=== PATIENT | male | born 1990 | race Caucasian/White ===

== ENCOUNTER 2025-01-31 07:24 | Emergency (ER) | payer BC, SELFPAY ==
--- OUTSIDE RECORDS SUMMARY | 2025-01-03 12:02 | XMS_ITS | Encounter Summary ---
Author Organization [facility] Address [address] [place] [address] Care Team Providers Care Franchise Consultant Name Role Phone Anika Sin APRN C.N.P. Primary Care Provide r Reason for Visit * Reason Comments Cough Patient presents wit h cough and congestion he has had for going on two weeks. Intermittent fevers. Encounter Details Date Type Department Care Team (Late st Contact Info) Description 01/03/2025 12:02 PM CDT - 01/03/2025 12:26 PM CDT Emergency [facility] [address] [place] [address] Guillermo French, Clarence.-C., P.A. [address] [place] [address] [phone] Pneumonia Atypical (Primary Dx) Discharge Disposition: Home or Self Care Social History Tobacco Use Types Packs/Day Years Used Date Smoking Tobacco: Never Passive Smoke Exposure: Never Smokeless Tobacco: Current Chew Tobacco Cessation:Ready to Q uit: Not Asked; Counseling Given: Not Answered Alcohol Use Standard Drinks/Week Comments Yes 0 (1 standard drink = 0.6 oz pur e alcohol) Socially [facility] Utilities Answer Date Recorded In the past 12 months has th e electric, gas, oil, or water company threatened to shut off services in your home? No 07/18/2024 Humiliation, Afraid, Rape, and Kick questionnair e Answer Date Recorded Within the last year, have y ou been afraid of your partner or ex-partner? No 08/05/2022 Within the last year, have y ou been humiliated or emotionally abused in other ways by your partner or ex-partner? No Within the last year, have y ou been kicked, hit, slapped, or otherwise physically hurt by your partner or ex-partner? No 08/05/2022 Within the last year, have y ou been raped or forced to have any kind of sexual activity by your partner or ex-partner? No 08/05/2022 Social Connection and Isolation Panel [NHANES] A nswer Date Recorded In a typical week, how many times do you talk on the phone with family, friends, or neighbors? Three times a week 08/05/2022 How often do you get togethe r with friends or relatives? Once a week 08/05/2022 How often do you attend chur ch or mormon services? Never 08/05/2022 Do you belong to any clubs o r organizations such as catholic groups, unions, fraternal or athletic groups, or school groups? No 08/05/2022 How often do you attend meet ings of the clubs or organizations you belong to? Never 08/05/2022 Are you , , di vorced, , never , or living with a partner? 08/05/2022 AUDIT-C Answer Date Recorded Q1: How often do you have a drink containing alc ohol? Monthly or less 08/05/2022 Q2: How many drinks containi ng alcohol do you have on a typical day when you are drinking? 3 or 4 08/05/2022 Q3: How often do you have si x or more drinks on one occasion? Less than monthly 08/05/2022 Overall Financial Resource Strain (CARDIA) Answe r Date Recorded How hard is it for you to pa y for the very basics like food, housing, medical care, and heating? Not hard at all 08/05/2022 PHQ-2 Answer Date Recorded PHQ-2 Score 2 07/18/2024 [facility] - Occupational Stress Questionnaire Answer Date Recorded Do you feel stress - tense, restless, nervous, or anxious, or unable to sleep at night because your mind is troubled all the time - these days? Only a little 08/05/2022 Exercise Vital Sign Answer Date Recorde d On average, how many days pe r week do you engage in moderate to strenuous exercise (like a brisk walk)? 2 days 07/18/2024 On average, how many minutes do you engage in exercise at this level? 20 min 07/18/2024 Hunger Vital Sign Answer Date Recorded Within the past 12 months, y ou worried that your food would run out before you got the money to buy more. Never true 07/18/20 24 Within the past 12 months, t he food you bought just didn't last and you didn't have money to get more. Never true 07/18/2024 PRAPARE - Transportation Answer Date Re corded In the past 12 months, has l ack of transportation kept you from medical appointments or from getting medications? No 06/30 In the past 12 months, has l ack of transportation kept you from meetings, work, or from getting things needed for daily living? No 07/18/2024 Depression Answer Date Recor ded PHQ-9 Total Score (max 27) 10 07/18 Nutrition Answer Date Recorded On average, how many serving s of fruits and vegetables do you eat per day (serving size is equal to 1 cup or approximately the size of a tennis ball)? 0-2 07/18/2024 Dental Answer Date Recorded Dental: Regular Dentist Yes 01/30/20 Employment Answer Date Recorded Employment status Employed and actively working without restrictions 07/18/2024 Housing Stability Answer Date Recorded What is your living situation today? I have a [facility] place to live 07/18/2024 Education Answer Date Recorded What is the highest level of school you have completed or the highest degree you have received? Associate degree: occupational, technical, or vocational program 08/12/2021 Sex and Gender Information Value Date Recorded Sex Assigned at Male 08/12/2021 6:02 PM FACULTY MEMBER Legal Sex Male 5:29 PM FACULTY MEMBER Gender Identity Male 08/12/2021 6:02 PM FACULTY MEMBER Sexual Orientation Straight 08/12/2021 6: 02 PM FACULTY MEMBER documented as of this encounter Last Filed Vital Signs Vital Sign Reading Time Taken Comments Blood Pressure 152/105 01/03/2025 11:59 AM CDT Patient states he does have higher BP, usually 150s/90s Pulse 90 01/03/2025 11:59 AM CDT Temperature 37.5 C (99.5 F) 01/03/2025 11:59 AM CDT Respiratory Rate 16 01/03/2025 11:5 9 AM CDT Oxygen Saturation 98% 01/03/2025 11: 59 AM CDT Inhaled Oxygen Concentration - - Weight 177 kg (390 lb 6.4 oz) 01/03/2025 12:02 PM CDT Height 195.6 cm (6' 5) 01/03/2025 12:0 2 PM CDT Body Mass Index 46.29 01/03/2025 12:02 PM CDT documented in this encounter Discharge Instructions * Attachments The following attachments cannot be sent through Care Everywhere. * Community-Acquired Pneumonia Adult [id number] ([place] Island[place]) documented in this encounter Medications at Time of Discharge albuterol 90 mcg/actuation inhalerIndications:P neumonia Atypical Inhale 2 puffs every 6 (six) hours as needed for wheezing. 8 g 1 01/03/2025 lamoTRIgine (LaMICtaL) 200 mg tablet Take 200 mg by mouth daily. 02/02/2024 methylPREDNISolone (MedroL DosePak) 4 mg tabletIndications:Pn eumonia Atypical Follow package directions. 21 tablet 01/03/2025 omeprazole (PriLOSEC) [address] capsuleIndications:G astroesophageal Reflux Disease,Stricture Esophagus Take 1 capsule (40 mg total) by mouth daily before morning meal. 90 capsule 3 07/18/2024 rizatriptan PIT LABORER (Maxalt-PIT LABORER) 10 mg disintegrating tabletIndications:Mi graine Headache DISSOLVE 1 TABLET BY MOUTH NEEDED FOR MIGRAINE. 18 tablet 1 07/18/2024 triamcinolone (Kenalog) 0.1 % cream APPLY A THIN LAYER TO THE AFFECTED AREA ON THE LEG TWO TIMES DAILY FOR UP TO 2 WEEKS AT A TIME, THEN TAKE A 2 WEEK BREAK. RESUME NEEDED. 10/25/2024 venlafaxine XR (EFFEXOR-XR) 150 mg 24 hr capsuleIndications:A nxiety Generalized Disorder,Depression Major One Episode Moderate (HCC) Take 1 capsule (150 mg total) by mouth daily. 90 capsule 3 03/05/2022 azithromycin (Zithromax) 250 mg tabletIndications:Pn eumonia Atypical Take 2 tablets (500 mg total) by mouth daily for 1 day, THEN 1 tablet (250 mg total) daily for 4 days. 6 tablet 01/03/2025 5 documented as of this encounter Progress Notes * Guillermo French P.A.-Rajani., P.A. - 01/03/2025 12:26 PM CDT DATE OF VISIT: 01/03/2025 SUBJECTIVE CHIEF COMPLAINT / REASON FOR VISIT Brian Huddleston is a 34 y.o. male who presents for evaluation of Cough (Patient presents with cough and congestion he has had for going on two weeks. Intermittent fevers. ). The patient verbally consented to an audio recording of their visit to assist with the completion of documentation. History of Present Illness Brian Huddleston is a 34 year old male who presents with congestion, cough, and sore throat. He has been experiencing congestion, cough, and sore throat for the past one and a half to two weeks. There is a persistent feeling of phlegm in his throat that does not improve despite efforts to alleviate it. The cough is persistent and not improving. He has no fever, chills, or body aches, but he has a headache currently and sporadically over the past couple of weeks, which he attributes to severe coughing fits. He experiences a sore throat but no significant sinus congestion or facial pressure. He reports blowing thick green mucus from his nose. He has a history of asthma, which was more symptomatic during his childhood. He has not experiencedan asthma attack since middle school and is not currently using any asthma medications, including an albuterol inhaler. OBJECTIVE VITAL SIGNS BP (!) 152/105 Comment: Patient states he does have higher BP, usually 150s/90s Pulse 90 Temp 37.5 ??C (Temporal) Resp 16 Ht 195.6 cm Wt (!) 177 kg SpO2 98% BMI 46.29 kg/m?? Physical Exam Vitals and nursing note reviewed. Constitutional General: He is not in acute distress. Appearance: Normal appearance. He is ill-appearing. He is not toxic-appearing. HENT Head: Normocephalic and atraumatic. Right Ear: Tympanic membrane, ear canal and external ear normal. Left Ear: Tympanic membrane, ear canal and external ear normal. Nose: Nose normal. No congestion or rhinorrhea. Mouth/Throat: Mouth: Mucous membranes are moist. Pharynx: Oropharynx is clear. No oropharyngeal exudate or posterior oropharyngeal erythema. Cardiovascular Rate and Rhythm: Normal rate and regular rhythm. Pulses: Normal pulses. Heart sounds: Normal heart sounds. Pulmonary Effort: Pulmonary effort is normal. No respiratory distress. Breath sounds: Wheezing present. No rhonchi or rales. Musculoskeletal Cervical back: Normal range of motion and neck supple. No rigidity or tenderness. Lymphadenopathy Cervical: No cervical adenopathy. Skin General: Skin is warm and dry. Capillary Refill: Capillary refill takes less than 2 seconds. Neurological General: No focal deficit present. Mental Status: He is alert and oriented to person, place, and time. Psychiatric Mood and Affect: Mood normal. Behavior: Behavior normal. ASSESSMENT/ PLAN Pneumonia Atypical Symptoms consistent with atypical pneumonia, including congestion, cough, sore throat, and headacheover the past 1-2 weeks. No fever, chills, or body aches reported. Examination reveals tight and wheezy lungs without specific consolidation. Diagnosis of walking pneumonia made based on history and clinical findings. Decision made to forgo chest x-ray as it would not significantly alter treatment plan. Treatment with antibiotics and oral steroids deemed appropriate. - Prescribe oral antibiotics for atypical pneumonia. - Prescribe oral steroids to reduce inflammation. Orders: azithromycin (Zithromax) 250 mg tablet; Take 2 tablets (500 mg total) by mouth daily for 1 day, THEN 1 tablet (250 mg total) daily for 4 days. methylPREDNISolone (MedroL DosePak) 4 mg tablet; Follow package directions. albuterol 90 mcg/actuation inhaler; Inhale 2 puffs every 6 (six) hours as needed for wheezing. Patient/caregiver was instructed to contact the clinic if symptoms fail to improve as discussed, worsen, or change. Patient/caregiver was in agreement with the care plan and all questions were answered. Health maintenance was discussed, and the patient/caregiver was encouraged to complete these if not already completed. Patient left in no acute distress. Guillermo French P.A.-C., P.A. Guillermo French P.A.-C., P.A. 01/03/25 [id number] documented in this encounter Plan of Treatment Upcoming Encounters Date Type Department Care Team (Late st Contact Info) Description 06/06/2025 9:45 AM CDT Office Visit Department of Sleep Medicine in [place], [place] [address] [place] [phone] Cheng Pritchett M.D. [address] [place] [phone] Discharge Disposition: Home or Self Care documented as of this encounter Visit Diagnoses Diagnosis Pneumonia Atypical- Primary documented in this encounter Additional Health Concerns Assessment Noted Time PHQ-9 Depression Total Score: 10 07/18/ 024 5:15 AM FACULTY MEMBER documented as of this encounter Care Teams Franchise Consultant Relationship Specialty Start Date End Date Anika Sin APRN, C.N.P. [address] [place] [phone] PCP - General Family Medicine 08/20/20 documented as of this encounter
--- OUTSIDE RECORDS SUMMARY | 2025-01-17 09:00 | XMS_ITS | Encounter Summary ---
Author Organization [facility] Address [address] [place] [address] Care Team Providers Care Clinic Business Manager Name Role Phone Anika Sin APRN, C.N.P. Primary Care Provide r Reason for Referral * Outpatient (Routine) - Authorized Specialty Diagnoses / Procedures Referred By Tessa stubbs Referred To Contact Sleep Medicine Cheng Pritchett M.D. [address] [place] [address] Phone: tel: fax: [facility] Region Referral ID Status Reason Start Date Expiration Date V isits Requested Visits Authorized [id number] Authorized 01/17/2025 07/19/2026 1 1 Reason for Visit * Reason Comments Sleep Apnea Establish care-uses cpap * Outpatient (Routine) - Closed Specialty Diagnoses / Procedures Referred By Tessa stubbs Referred To Contact Sleep Medicine Diagnoses Apnea Sleep Obstructive Anika Sin APRN, C.N.P. [address] [place] [address] Phone: tel: fax: [facility] Region Referral ID Status Reason Start Date Expiration Date V isits Requested Visits Authorized [id number] Closed Specialty Services Required 07/18/2024 01/17/2026 1 1 Encounter Details Date Type Department Care Team (Latest Contact Info) Description 01/17/2025 9:00 AM CDT Comprehensive Visit Department of Sleep Medicine in [place], [place] [address] [place] [phone] Cheng Pritchett M.D. [address] [place] [address] Obstructive Sleep Apnea Adult (Primary Dx); Apnea Sleep Obstructive; Inadequate Sleep Hygiene; Insufficient Sleep Syndrome; Fatigue Discharge Disposition: Home or Self Care Social History Tobacco Use Types Packs/Day Years Used Date Smoking Tobacco: Never Passive Smoke Exposure: Never Smokeless Tobacco: Current Chew Alcohol Use Standard Drinks/Week Comments Yes 1 (1 standard drink = 0.6 oz pur e alcohol) Socially [facility] [employer] Answer Date Recorded In the past 12 months has e [employer], gas, oil, or water [employer] threatened to shut off services in your [...] often do you attend chur ch or yarsani services? Never 08/05/2022 Do you belong to any clubs o r organizations such as voodoo groups, unions, fraternal or athletic groups, or [...] Answer Date Recorded PHQ-2 Score 2 07/18/2024 [facility] - Occupational Stress Questionnaire Answer Date Recorded [...] your living situation today? I have a [facility] place to live 07/18/2024 Education Answer Date Recorded What is the highest level of school you have completed or the highest degree you have received? Associate degree: occupational, technical, or vocational program 08/12/2021 Sex and Gender Information Value Date Recorded Sex Assigned at Male 08/12/2021 6:02 PM BEER MAKER Legal Sex Male 5:29 PM BEER MAKER Gender Identity Male 08/12/2021 6:02 PM BEER MAKER Sexual Orientation Straight 08/12/2021 6: 02 PM BEER MAKER documented as of this encounter Last Filed Vital Signs Vital Sign Reading Time Taken Comments Blood Pressure 135/84 01/17/2025 8:48 AM CDT Pulse 77 01/17/2025 8:44 AM CDT Temperature 36.4 C (97.6 F) 01/17/2025 8:44 AM CDT Respiratory Rate - - Oxygen Saturation 97% 01/17/2025 8:44 AM CDT Inhaled Oxygen Concentration - - Weight 180 kg (397 lb 14.4 oz) 01/17/2025 8:44 A M CDT Height 195 cm (6' 4.77) 01/17/2025 8:44 AM CDT Body Mass Index 47.46 01/17/2025 8:44 AM CDT documented in this encounter Patient Instructions * Patient Instructions* Cheng Pritchett M.D. - 01/17/2025 9:00 AM CDT 1. Please obtain a new CPAP machine from the [facility] medical equipment store. They should callyou in the coming business days, though please reach out to them if you do not hear from them within 1 week. Please know that due to CPAP supply shortage, obtaining a new device may take weeks to over a month depending on availability. 2. Please have a goal to use your CPAP machine every night for as long as you sleep. You may first use the device while awake, prior to sleep, until you become comfortable with the device. 3. Please schedule an appointment at the help desk specialist to follow up in the sleep offices with Dr. Mancini approximately 6-7 weeks after you obtain your new CPAP machine. Please know that due to providershortage, follow up appointment may be scheduled out longer than the 6-7 week goal. [facility], and we anticipate easier access to Dr. Pritchett in the months to come. 4. Should you have any difficulties all starting CPAP therapy, please contact your durable medical equipment provider or our office is so that we may help troubleshoot any problems you may be experiencing. 5. Do not drive while drowsy. 6. For your other sleep challenges, please consider the following: -Please complete an overnight oxygen test after getting your new CPAP device. help desk rep will help schedule this appointment -Please have a caffeine cutoff time of about 3:00 pm -Please consider taking Lamictal in the morning -Please consider sleep extension to at least 7 hours of sleep per night -Please try to limit light and cell phone stimulus before bed documented in this encounter Consult Notes * Cheng Pritchett M.D. - 01/17/2025 9:00 AM CDT SUBJECTIVE Anika Sin, FRONT END LOADER OPERATOR, C.N.P. [address] [place] [address] REASON FOR CONSULT Mr. Huddleston is seen in consultation for possible obstructive sleep apnea. History was obtained from the patient and medical records. HISTORY OF PRESENT ILLNESS Mr. Huddleston is a 34 y.o. male who comes in with sleep questionnaire indicating a sleep history positive for ???I am sleepy during the daytime?? . The patient was previously evaluated by sleep medicinein [address] [facility] location at [facility] [place], [place]. The patientunderwent a polysomnogram on 11/14/2018. Results demonstrated an AHI of 39 events per hour. Weight at the time of the polysomnogram was 323 lb. In follow up, the patient was started on CPAP therapy. Today, the patient states that he continues to use the CPAP every night. The patient would like to establish care in the [facility] as he does not make it up to [place], [place] much any longer. The patient states that he does not have sleep complaints, though is somewhat tired during the daytime. The patient state that this primary goal of care is to make sure things are under control and that he keeps the CPAP where it should be. Regarding his sleep schedule, the patient physically gets into bed at 8:00 - 8:30 pm on weekdays and weekends after putting his son down to bed. The patient states that he will then use his cell phone for about 2-4 hours. He states that he will drift off to sleep during this time or fall asleep shortly after putting the cell phone down. Bedroom environment is quiet, dark, and relatively cool in temperature. During the course of the night, the patient will awaken about 2-3x due attending to children or other unknown reasons. The patient estimates returning to sleep in about 10 minutes, typically. The patient does not believe he is snoring with the CPAP device in place. The patient states that he uses a nasal pillow mask interface. He believes he achieves a good seal. The patient denies symptoms consistent with restless leg syndrome. The patient denies regular nightmares and denies dream enactment behavior. TH patient denies sleep walking and denies sleep eating. The patient awakens for the day at about 4:30 am on weekdays, with range of 3:30 am - 6:00 am. Schedule will be approximately the same on weekends. The patient states that he does not feel rested upon awakening. The patient states that he does have a dry mouth upon awakening at times. The patient states that he does have a headache upon awakening, about 1 day/week. The patient does take naps 2 days/week for about 2 hours per nap. The patient states that he does have some degree of drowsiness while driving. The patient states that his natural sleep onset time would be about 10:00 pm. 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 The patient has not worked overnight shifts in the last 5 years. The patient does use chew tobacco, about 4-5 pouches per week. The patient ETOH is about 0-1 drinks/week. The patient denies recreational drugs. Caffeine use is with soda, 20-40 oz per day or 1 liter plus 24 oz per day. The patient will imbibe caffeine into the evening. The patient states that he estevez snot use sleep aids. The patient states that his weight has been up about 70 lbs since his sleep study. The patient states that his mood has been good. Thepatient states that he does some irritability. He does take Venlafaxine in the morning. He does take Lamictal at night. Deary Score is 9/24. PAST MEDICAL, SOCIAL and FAMILY HISTORIES The following portions of the patient's history were reviewed and updated as appropriate: allergies, current medications, family history, medical history, social history, surgical history, and problem list. Social History Tobacco Use Smoking status: Never Passive exposure: Never Smokeless tobacco: Current Types: Chew Family History with mother and father who have HELEN, on CPAP REVIEW OF SYSTEMS As above in the HPI. OBJECTIVE PHYSICAL EXAM Vitals: 01/17/25 0844 01/17/25 0848 BP: (!) 168/79 135/84 BP Location: Right arm;Lower Right leg;Lower Patient Position: Sitting Sitting Cuff Size: Large Large Pulse: 77 Temp: 36.4 ??C TempSrc: Temporal SpO2: 97% Weight: (!) 180 kg Height: 195 cm Physical Exam Deferred Date of download: 10/19/2024 through 01/16/2025 Patient was on: CPAP 11 cm H2O Total days included in download: 90 Percent days with device use: 100% Percent days with > 4 hrs use: 94% Average AHI as determined by device was: 1.5 Average usage on days used: 6 hours and 22 minutes ASSESSMENT / PLAN 1. Severe obstructive sleep apnea, on CPAP. The patient and I have reviewed his previous sleep history, ongoing CPAP use, and goals of care during today's appointment. The patient would like to establish care at the [facility]. He would like to receive CPAP supplies, though he is eligible for a new device as well. For the patient, new CPAP prescription has been generated with settings of 11 cm H2O. He will use the [facility] in [place], [place] to obtain his new device. After obtaining new device, we will follow-up in approximately 6 7 weeks to review compliance and efficacy. Shouldhe have any difficulty in the interim, he will contact the Sleep Medicine offices or his DME store so that we may help troubleshoot any problems he is experiencing. 2. Fatigue/inadequate sleep hygiene/insufficient sleep. The patient and I have also discussed fatigue. We will proceed with an overnight pulse oximetry as an additional means of assessment after he obtains his new CPAP device. He has gained approximately 70 lb since the time of his sleep test. Moreover, independent of sleep disorder breathing, I have encouraged sleep extension for the patient as he is obtaining less than 7 hours of sleep per night regularly. I have encouraged a caffeine cut offtime of no later than 3:00 p.m.. He may also consider taking Lamictal in the morning rather than prior to sleep. I have recommended that he also limit light cell phone stimulus prior to bed. Cheng Pritchett M.D. documented in this encounter Plan of Treatment Upcoming Encounters Date Type Department Care Team (Late st Contact Info) Description 06/06/2025 9:45 AM CDT Office Visit Department of Sleep Medicine in [place], [place] [address] [place] [address] Cheng Pritchett M.D. [address] [place] [address] Discharge Disposition: Home or Self Care Scheduled Orders Name Type Priority Associated Diagnoses Orde r Schedule Home Overnight Oximetry PFT Routine Obstructive Sleep Apnea Adult Expected: 01/17/2025, Expires: 04/19/2026 Scheduled Referrals Name Type Priority Associated Diagnoses Orde r Schedule Sleep Medicine office visit (clinic) Outpatient Referral Routine Expected: 01/17/2025, Expires: 04/19/2026 documented as of this encounter Visit Diagnoses Diagnosis Obstructive Sleep Apnea Adult- Primary Apnea Sleep Obstructive Inadequate Sleep Hygiene Insufficient Sleep Syndrome Fatigue documented in this encounter Additional Health Concerns Assessment Noted Time PHQ-9 Depression Total Score: 10 024 5:15 AM BEER MAKER documented as of this encounter Care Teams Clinic Business Manager Relationship Specialty Start Date End Date Anika Sin APRN, C.N.P. [address] [place] [address] PCP - General Family Medicine 08/20/20 documented as of this encounter
--- OUTSIDE RECORDS SUMMARY | 2025-01-31 07:27 | XMS_ITS | Encounter Summary ---
Author Organization [facility] Address [address] [place] [address] Care Team Providers Care Pickers Material Handlers Name Role Phone Anika Sin APRN, C.N.P. Primary Care Provide r Encounter Details Date Type Department Care Team (Late st Contact Info) Description 01/17/2025 CPAP Download Remote Patient Monitoring [facility] [address] [place] [address] [facility], ProviderMD Social History Tobacco Use Types Packs/Day Years Used Date Smoking Tobacco: Never Passive Smoke Exposure: Never Smokeless Tobacco: Current Chew Alcohol Use Standard Drinks/Week Comments Yes 1 (1 standard drink = 0.6 oz pur e alcohol) Socially [facility] Utilities Answer Date Recorded In the past 12 months has e [employer], gas, oil, or water [employer] threatened to shut off services in your [...] often do you attend chur ch or buddhist services? Never 08/05/2022 Do you belong to any clubs o r organizations such as hoahaoism groups, unions, fraternal or athletic groups, or [...] Answer Date Recorded PHQ-2 Score 2 07/18/2024 [facility] - Occupational Stress Questionnaire Answer Date Recorded [...] your living situation today? I have a [facility] place to live 07/18/2024 Education Answer Date Recorded What is the highest level of school you have completed or the highest degree you have received? Associate degree: occupational, technical, or vocational program 08/12/2021 Sex and Gender Information Value Date Recorded Sex Assigned at Male 08/12/2021 6:02 PM DIRECTOR OF CAMPUS RECREATION Legal Sex Male 5:29 PM DIRECTOR OF CAMPUS RECREATION Gender Identity Male 08/12/2021 6:02 PM DIRECTOR OF CAMPUS RECREATION Sexual Orientation Straight 08/12/2021 6: 02 PM DIRECTOR OF CAMPUS RECREATION documented as of this encounter Plan of Treatment Upcoming Encounters Date Type Department Care Team (Late st Contact Info) Description 06/06/2025 9:45 AM CDT Office Visit Department of Sleep Medicine in [place], [place] [address] [place] [phone] Cheng Pritchett M.D. [address] [place] [phone] Discharge Disposition: Home or Self Care documented as of this encounter Visit Diagnoses Not on filedocumented in this encounter Additional Health Concerns Assessment Noted Time PHQ-9 Depression Total Score: 10 024 5:15 AM DIRECTOR OF CAMPUS RECREATION documented as of this encounter Care Teams Pickers Material Handlers Relationship Specialty Start Date End Date Anika Sin APRN CRupaliN.P. [address] [place] [phone] PCP - General Family Medicine 08/20/20 documented as of this encounter
--- OUTSIDE RECORDS SUMMARY | 2025-01-31 07:27 | XMS_ITS | Clinical Summary ---
Author Organization [facility] Address [address] [place] [address] Care Team Providers Care Ear Flap Binder Name Role Phone Anika Sin APRN, C.N.P. Primary Care Provide r Source Comments Patient records contain information from all sites at [facility]. For routine questions regarding patient records, call [phone] during business hours, M-F 8:00 AM - 5:00 PM Central Time. Record requests for emergency care only can be directed to [phone] at any time.[facility] Allergies Active Allergy Reactions Criticality Noted Date Comments Penicillins Hives (Reselect Reaction) 4 hives Medications * This document contains information received from the source organization and may not represent a complete record from that organization. venlafaxine XR (EFFEXOR-XR) 150 mg 24 hr capsuleIndications :Anxiety Generalized Disorder,Depressio n Major One Episode Moderate (HCC) Take 1 capsule (150 mg total) by mouth daily. 90 capsule 3 2 Active lamoTRIgine (LaMICtaL) 200 mg tablet Take 200 mg by mouth daily. 4 Active omeprazole (PriLOSEC) [address] capsuleIndications :Gastroesophageal Reflux Disease,Stricture Esophagus Take 1 capsule (40 mg total) by mouth daily before morning meal. 90 capsule 3 4 Active rizatriptan [employer] (Maxalt-[employer]IN [employer]WE[employer] OPERATOR) 10 mg disintegrating tabletIndications: Migraine Headache DISSOLVE 1 TABLET BY MOUTH NEEDED FOR MIGRAINE. 18 tablet 1 4 Active triamcinolone (Kenalog) 0.1 % cream APPLY A THIN LAYER TO THE AFFECTED AREA ON THE LEG TWO TIMES DAILY FOR UP TO 2 WEEKS AT A TIME, THEN TAKE A 2 WEEK BREAK. RESUME NEEDED. 5 Active methylPREDNISolone (MedroL DosePak) 4 mg tabletIndications: Pneumonia Atypical Follow package directions. 21 tablet 5 Active albuterol 90 mcg/actuation inhalerIndications :Pneumonia Atypical Inhale 2 puffs every 6 (six) hours as needed for wheezing. 8 g 1 5 Active azithromycin (Zithromax) 250 mg tabletIndications: Pneumonia Atypical Take 2 tablets (500 mg total) by mouth daily for 1 day, THEN 1 tablet (250 mg total) daily for 4 days. 6 tablet 5 01/18/20 Active Problems Problem Noted Date Diagnosed Date Depression Major One Episode Moderate 01/29/2022 Body Mass Index 45.0 To 49.9 Adult 05/13/2021 Anxiety Generalized Disorder 07/19/2020 Gastroesophageal Reflux Disease 07/19/2020 Stricture Esophagus 07/19/2020 Migraine Headache 07/19/2020 Apnea Sleep Obstructive 11/21/2018 Overview (07/19/2020): Severe HELEN Setting: CPAP 11 Supplied by: [facility] PSG done: 11/14/18 AHI 39 RDI 43 Lowest O2 Sat: 80% Isacc/Khushier 11/21/18 new Encounters * This document contains information received from the source organization and may not represent a complete record from that organization. Date Type Department Care Team Description 01/17/2025 9:00 AM CDT Comprehensive Visit Department of Sleep Medicine in [address] [phone] Cheng Pritchett M.D. Obstructive Sleep Apnea Adult (Primary Dx); Apnea Sleep Obstructive; Inadequate Sleep Hygiene; Insufficient Sleep Syndrome; Fatigue Discharge Disposition: Home or Self Care 01/17/2025 CPAP Download Remote Patient Monitoring [facility] [address] [place] [address] [facility], Provider, 01/03/2025 12:02 PM CDT - 01/03/2025 12:26 PM CDT Emergency [facility] [address] [place] [phone] Guillermo French P.A.-C., P.A. Pneumonia Atypical (Primary Dx) Discharge Disposition: Home or Self Care from Last 3 Months Immunizations Immunization Administration Dates Next Due Influenza, Seasonal, Injectable 09/03/2013 Influenza, Unspecified 08/13/2021(Deferred: Amelia ent Refused) SARS-COV-2 (COVID-19) - PFIZ ER (Discontinued)(12 years or older) 08/13/2021(Deferred: Patient decision) Tdap 05/11/2016 influenza vaccine quad (FLUZONE/FLUARIX) (6 months and older)(PF) 06/28/2014 Family History Medical History Relation Name Comments No Known Problems Daughter 1 No Known Problems Daughter 2 Atrial fibrillation Father Anxiety depression Mother 1 Blood clot Mother 1 Diabetes Mother 1 No Known Problems Sister 1 No Known Problems Sister 2 Relation Name Status Comments Daughter 1 Alive Daughter 2 Alive Father Alive Mother 1 Mother 2 Jazmín neri Alive Sister 1 Alive Sister 2 Alive Social History Tobacco Use Types Packs/Day Years Used Date Smoking Tobacco: Never Passive Smoke Exposure: Never Smokeless Tobacco: Current Chew Tobacco Cessation:Ready to Q uit: Not Asked; Counseling Given: Not Answered Alcohol Use Standard Drinks/Week Comments Yes 1 (1 standard drink = 0.6 oz pur e alcohol) Socially [facility] [employer] Answer Date Recorded In the past 12 months has e [employer], gas, oil, or water [employer] threatened to shut off services in your [...] often do you attend chur ch or adventism services? Never 08/05/2022 Do you belong to any clubs o r organizations such as muslim groups, unions, fraternal or athletic groups, or [...] Answer Date Recorded PHQ-2 Score 2 07/18/2024 [facility] - Occupational [...] your living situation today? I have a [facility] place to live 07/18/2024 Education Answer Date Recorded What is the highest level of school you have completed or the highest degree you have received? Associate degree: occupational, technical, or vocational program 08/12/2021 Sex and Gender Information Value Date Recorded Sex Assigned at Male 08/12/2021 6:02 PM [employer] Legal Sex Male 5:29 PM [employer]PER[employer]OR [employer] Gender Identity Male 08/12/2021 6:02 PM [employer]VISOR [employer] Sexual Orientation Straight 08/12/2021 6: 02 PM SUPERVISOR SANDB[employer] Last Filed Vital Signs Vital Sign Reading Time Taken Comments Blood Pressure 135/84 01/17/2025 8:48 AM CDT Pulse 77 01/17/2025 8:44 AM CDT Temperature 36.4 C (97.6 F) 01/17/2025 8:44 AM CDT Respiratory Rate 16 01/03/2025 11:59 AM CDT Oxygen Saturation 97% 01/17/2025 8:44 AM CDT Inhaled Oxygen Concentration - - Weight 180 kg (397 lb 14.4 oz) 01/17/2025 8:44 A M CDT Height 195 cm (6' 4.77) 01/17/2025 8:44 AM CDT Body Mass Index 47.46 01/17/2025 8:44 AM CDT Plan of Treatment Upcoming Encounters Date Type Department Care Team (Late Contact Info) Description 06/06/2025 9:45 AM CDT Office Visit Department of Sleep Medicine in [place], [place] [address] [place] [phone] Cheng Pritchett M.D. [address] [place] [phone] Discharge Disposition: Home or Self Care Health Maintenance Due Date Last Done Comments HIV Screening 1989 Hepatitis C Screening 1989 Hepatitis B Vaccines (1 of 3 - 19+ 3-dose series) 2008 COVID-19 Vaccine (2023-2 5 season) 2024 Influenza Vaccine (#1) 2024 4, 09/03/2013 Depression Monitoring (PHQ-9 for quality tracking) 08/30/2024 Depression Monitoring (PHQ-9) 11/15/2024 07/18/2024 Tobacco Cessation counseling 07/18/2025 07/18/2024 DTaP,Tdap,and Td Vaccines (2 - Td or Tdap) 05/11/2026 05/11/2016 Lipid (Cholesterol) Screening 07/18/2029 07/18/2024 HPV Vaccines Aged Out No longer eligi ble based on patient's age to complete this topic IPV Vaccines Aged Out No longer eligi ble based on patient's age to complete this topic Pneumococcal vaccine (0-49 years) Aged Out No longer eligible b ased on patient's age to complete this topic Procedures Procedure Name Priority Date/Time Associated Diagnosis Comments LIPID PANEL, S Routine 07/18/2024 4:12 PM SUPERVISOR S[employer] Screening Lipid from Last 3 Months or Most Recently Relevant to Health Maintenance Results * (ABNORMAL) Lipid Panel (07/18/2024 4:12 PM SUPERVISOR SANDBLASTER) Triglycerides 127 mg/dL 07/18/2024 6:54 PM SUPERVISOR SANDBLASTER NPRG Comment: ----REFERENCE VALUE---- Normal: <150 mg/dL Borderline High: 150-199 mg/dL High: 200-499 mg/dL Very High: > or =500 mg/dL Cholesterol, Total 129 mg/dL 2023 6:54 PM SUPERVISOR SANDB[employer] NPRG Comment: ----REFERENCE VALUE---- Desirable: < 200 mg/dL Borderline High: 200 - 239 mg/dL High: > or = 240 mg/dL Cholesterol, LDL, Calculated 69 mg/dL 07/18/2024 6:54 PM SUPERVISOR SANDBLASTER NPRG Comment: ----REFERENCE VALUE---- Desirable: <100 mg/dL Above Desirable: 100-129 mg/dL Borderline High: 130-159 mg/dL High: 160-189 mg/dL Very High: >=190 mg/dL ----ADDITIONAL INFORMATION---- LDL cholesterol calculated using the Atkins/NIH equation. Cholesterol, HDL 37(L) >=40 mg/dL 07/18/20 6:54 PM SUPERVISOR SANDB[employer]ER NPRG Cholesterol, Non-HDL, Calculated 92 mg/dL 07/18/2024 6:54 PM SUPERVISOR SANDBLASTER NPRG Comment: ----REFERENCE VALUE---- Desirable: <130 mg/dL Above Desirable: 130-159 mg/dL Borderline High: 160-189 mg/dL High: 190-219 mg/dL Very High: > or =220 mg/dL Fasting (8 HR or more) No 07/18/2024 4:12 PM SUPERVISOR SANDB[employer] NPRG Blood (Blood, Venous) 07/18/2024 4:12 PM SUPERVISOR SANDBLASTER 07/18/2024 6:27 PM SUPERVISOR SANDB[employer]ER us Anika Sin APRN, C.N.P. LAB BLOOD ADD-ON Kimberli l Result [facility] [address] [place] [address], [facility] NPRG [facility] [address] [place] [address] from Last 3 Months or Most Recently Relevant to Health Maintenance Insurance [facility] Care Teams Ear Flap Binder Relationship Specialty Start Date End Date Anika Sin APRN, C.N.P. [address] [place] [phone] PCP - General Family Medicine 08/20/20
--- OUTSIDE RECORDS SUMMARY | 2025-01-31 07:27 | XMS_ITS | Data Portability ---
Author Organization [place] - [facility], autoContract - [facility] Address [address] [place] [address] Assessment Encounter Date Assessment Date Assessment LastModified by Organization Details LastModified Time 01/01/2025 01/01/2025 ASSESSMENT: Patient is a good candidate for conservative care and the prognosis is for a favorable outcome that achieves the patients' goals. We discussed etiology, activity modifications, home care, and other treatment options. Initially, it is recommended that the patient receive in-office treatment 1 times per week for 8 weeks at which time a re-evaluation will be performed to determine an appropriate change in plan. Initially, treatment will focus on joint manipulation to restore range of motion and reduce pain. We will slowly progress to therapeutic exercises and activities to improve function, strength, and stability may also be used as warranted. If the patient is not responding as expected, more invasive procedures will be discussed along with a referral. All considerations above were discussed with the patient and questions answered to satisfaction. If the patient should have any additional questions, or should the condition evolve or worsen, the patient should not hesitate to contact our office. Not available 01/02/2025 11:41:53 01/24/2025 01/24/2025 ASSESSMENT: Patient is a good candidate for conservative care and the prognosis is for a favorable outcome that achieves the patients' goals. We discussed etiology, activity modifications, home care, and other treatment options. Initially, it is recommended that the patient receive in-office treatment 1 times per week for 8 weeks at which time a re-evaluation will be performed to determine an appropriate change in plan. Initially, treatment will focus on joint manipulation to restore range of motion and reduce pain. We will slowly progress to therapeutic exercises and activities to improve function, strength, and stability may also be used as warranted. If the patient is not responding as expected, more invasive procedures will be discussed along with a referral. All considerations above were discussed with the patient and questions answered to satisfaction. If the patient should have any additional questions, or should the condition evolve or worsen, the patient should not hesitate to contact our office. Not available 01/24/2025 19:09:40 Plan of Treatment Reminders Order Date Submit Date Provider Last Modified By Organization Details Last Modified Time Details Appointments DC Treatment 2024 05:15P M Casper Lopez MS Not available Not available Not available Lab None recorded. Referral None recorded. Procedures None recorded. Surgeries None recorded. Imaging None recorded. Medication Orders None recorded. Patient TargetsNo targets recorded. Patient InstructionsNo instructions recorded. Reason for Referral None Reported. Problems Name Problem SNOMED Code Status Onset Date Resolution Date Notes Provider Name and Address Organization Details Recorded Time Somatic dysfunction of pelvic region 209551461 Active 2024 Shayne Crews, [place] [address], [facility] [place], [place], [address], [facility] 5 19:34:36 Neck pain 86553382 Active 2023 Casper LopezWALKER, [place] [address], [place], [address], [facility] 5 12:19:15 Cervical segmental dysfunction 031441567 Active 2023 [place], [place] [address], [place], [address], [facility] 4 15:13:31 Thoracic segmental dysfunction 350707716 Active 2023 [place], [place] [address], [place], [address], [facility] 5 12:19:16 Lumbar segmental dysfunction 064575001 Active 2023 Casper LopezWALKER, DC [address], [place], [address], [facility] 4 15:13:31 Lesion of lumbar spine 085944024 Active 2023 Casper Lopez DC [address], [place], [address], [facility] 4 15:13:33 Low back pain 414151561 Active 2023 Arjun VareladuaneKAYLEIGH [address], [place], [address], [facility] 4 19:05:45 Somatic dysfunction of sacral spine 363937547 Active 2023 Casper Lopez DC [address], [place], [address], [facility] 12:19:19 Problem Notes None recorded. Procedures Surgical History Date Name Laterality Status Provider Name and Address Organization Details Recorded Time 5 67727: Spinal manipulation , 3 to 4 regions completed Casper LopezKAYLEIGH [address], [place], [address], [facility] 01/24/2025 19:09:40 5 11773: Spinal manipulation , 3 to 4 regions completed Casper Lopez KAYLEIGH [address], [place], [address], [facility] 01/02/2025 12:19:09 5 09251: Spinal manipulation , 3 to 4 regions completed Casper BookergabrieldashaKAYLEIGH [address], [place], [address], [facility] 01/02/2025 11:42:16 5 89175: Spinal manipulation , 3 to 4 regions completed Shayne Crews DC [address], [place], [address], [facility] 11/25/2024 19:34:19 5 06281: Spinal manipulation , 3 to 4 regions completed Shayne Crews DC [address], [place], [address], [facility] 11/09/2024 10:24:28 5 67922: Spinal manipulation , 3 to 4 regions completed Casper Lopez MS [address], [place], [address], [facility] 10/27/2024 19:27:34 5 58528: Spinal manipulation , 3 to 4 regions completed Casper Hansnorm Lopez MS [address], [place], [address], [facility] 10/23/2024 19:49:38 5 08521: Spinal manipulation , 3 to 4 regions completed Arjun Salamanca DC [address], [place], [address], [facility] 10/20/2024 18:50:29 5 24044: Spinal manipulation , 3 to 4 regions completed Shayne Crews [address], [place], [address], [facility] 10/19/2024 17:06:10 4 41386: Spinal manipulation , 3 to 4 regions completed Arjun Salamanca DC [address] [place] [address], [place], [address], [facility] 08/21/2024 19:05:25 4 28309: Spinal manipulation , 3 to 4 regions completed Casper Hansnorm Lopez [address], [place], [address], [facility] 08/17/2024 15:14:28 Imaging Results None recorded. Procedure Notes None recorded. Medical Equipment None Reported. Medications Name Sig Start Date Stop Date Status Note LastModified by Organization Details LastModified Time triamcinolone acetonide 0.1 % topical cream APPLY A THIN LAYER TO THE AFFECTED AREA ON THE LEG TWO TIMES DAILY FOR UP TO 2 WEEKS AT A TIME, THEN TAKE A 2 WEEK BREAK. RESUME NEEDED. active Not Available Not Available No t Available Vitals None Recorded Social History None recorded. Functional Status None recorded. Mental Status None recorded. Family History Nothing Reported. Medical History No medical history recorded. Gynecological HistoryNo gynecological history recorded. Obstetrics History GPAL:G 0 P 0 0 0 0 Past Encounters Encounter ID Performer Location Encounter Start Date Encounter Closed Date Diagnosis/Indication Diagnosis SNOMED-CT Code Diagnosis ICD10 Code Diagnosis Note [id number] Casper Lopez DC [facility] [address] [facility] [place] [address] 08/16/2024 18:55:10 08/17/2024 15:26:29 Cervical segmental dysfunction 635971594 M99.01 Neck pain 37878275 M54.2 Thoracic s egmental dysfunction 824721146 M99.02 Lumbar seg mental dysfunction 957426018 M99.03 Lesion of lumbar spine 208401156 M99.01 [id number] Arjun Salamanca DC [facility] & [address] [facility] [place] [address] 08/21/2024 18:06:23 09/05/2024 11:07:32 Cervical segmental dysfunction 645881409 M99.01 Neck pain 26362985 M54.2 Thoracic s egmental dysfunction 251149917 M99.02 Lumbar seg mental dysfunction 459470505 M99.03 Lesion of lumbar spine 188006412 M99.01 Low back pain 815964036 M54.50 Somatic dy sfunction of sacral spine 431908316 M99.04 [id number] Shayne Crews DC [facility] & [address] [facility] [place] [address] 10/19/2024 12:55:58 10/19/2024 17:07:40 Lesion of lumbar spine 417876850 M99.01 Neck pain 10030358 M54.2 Thoracic s egmental dysfunction 669733568 M99.02 Lumbar seg mental dysfunction 602796283 M99.03 Cervical s egmental dysfunction 330836719 M99.01 [id number] Arjun Salamanca DC [facility] & [address] [facility] [place] [place] [address] 10/20/2024 17:55:23 10/20/2024 18:52:10 Lesion of lumbar spine 710738092 M99.01 Neck pain 09774590 M54.2 Thoracic s egmental dysfunction 107393434 M99.02 Lumbar seg mental dysfunction 343424000 M99.03 Cervical s egmental dysfunction 628841899 M99.01 [id number] Casper Lopez DC [facility] & [address] [facility] [place] [facility] [place] [address] 10/23/2024 18:07:27 10/24/2024 17:52:46 Lesion of lumbar spine 343147932 M99.01 Neck pain 07768485 M54.2 Thoracic s egmental dysfunction 329631288 M99.02 Lumbar seg mental dysfunction 085527566 M99.03 Cervical s egmental dysfunction 622755315 M99.01 [id number] Casper Lopez DC [facility] & [address] [facility] [place] [place] [address] 10/26/2024 18:17:37 10/31/2024 09:48:23 Lesion of lumbar spine 816479014 M99.01 Neck pain 06062903 M54.2 Thoracic s egmental dysfunction 545915224 M99.02 Lumbar seg mental dysfunction 549753955 M99.03 Cervical s egmental dysfunction 544448193 M99.01 [id number] Shayne Crews DC [facility] & [address] [place] [address] 11/02/2024 18:07:38 11/16/2024 16:29:19 Cervical segmental dysfunction 689997796 M99.01 Thoracic s egmental dysfunction 494157822 M99.02 Neck pain 93375764 M54.2 Somatic dy sfunction of sacral spine 870799782 M99.04 [id number] Shayne Crews DC [facility] & [address] [facility] [place] [place] [facility] [place] [address] 11/16/2024 16:36:44 11/30/2024 11:50:30 Cervical segmental dysfunction 636667670 M99.01 Thoracic s egmental dysfunction 561545388 M99.02 Neck pain 13398405 M54.2 Somatic dy sfunction of pelvic region 270025986 M99.05 [id number] Casper Lopez DC [facility] [address] [place] [address] 01/01/2025 18:00:02 01/02/2025 19:41:02 Lesion of lumbar spine 203506106 M99.01 Neck pain 31298021 M54.2 Thoracic s egmental dysfunction 500186344 M99.02 Lumbar seg mental dysfunction 666786461 M99.03 Cervical s egmental dysfunction 130442722 M99.01 [id number] Casper Hans Lopez DC [facility] [address] [facility] [place] [address] 01/02/2025 11:40:21 01/03/2025 09:32:40 Cervical segmental dysfunction 794255916 M99.01 Neck pain 32707655 M54.2 Thoracic s egmental dysfunction 472928578 M99.02 Somatic dy sfunction of sacral spine 285257499 M99.04 [id number] Casper Lopez DC [facility] & [facility] [address] [facility] [place] [address] 01/24/2025 18:15:26 01/25/2025 19:03:58 Lesion of lumbar spine 069980586 M99.01 Neck pain 42837762 M54.2 Thoracic s egmental dysfunction 912307978 M99.02 Lumbar seg mental dysfunction 797129819 M99.03 Cervical s egmental dysfunction 515000115 M99.01 Health Concerns Section Related Observation LastModified by Organization Detai ls LastModified Time None Recorded Concern Status LastModified by Organization Details LastModified Time None Recorded Advance Directives Directive None Recorded Payers Encounter Date Sequence Insurance Name Policy Number Policy Nguyen Covered Member ID Nguyen Member ID Guarantor Name 11/02/2024 [id number] Brian Huddleston [id number] Devika Huddleston 11/16/2024 [facility] [employer] Shaquille Huddleston 11/30/2024 [facility] [employer] Shaquille Karo Huddleston 01/01/2025 [facility] Shaquille Karo Huddleston 01/24/2025 [employer] Shaquille Huddleston Notes Date Note Type Note Provider Name and Address Organization Details Recorded Time 11/02/2024 text/html HPI - Cervical SpineReported bypatient.Location: left Quality:aching Severity:moderate Duration:2 weeks Timing:gradual Alleviating Factors:ice Aggravating Factors:sitting Associated Symptoms:no numbness/tingling Shayne Trent [place], [place] [address], [place], [address], [facility] 11/09/2024 10:25:04 11/16/2024 text/html HPI - Cervical SpineReported bypatient.Location: left Quality:aching Severity:moderate Duration:2 weeks Timing:gradual Alleviating Factors:ice Aggravating Factors:sitting Associated Symptoms:no numbness/tingling Shayne Newman [place], [place] [address], [place], [address], [facility] 11/25/2024 19:35:10 11/30/2024 text/html HPI - Cervical SpineReported bypatient.Location: left Quality:aching Severity:moderate Duration:2 weeks Timing:gradual Alleviating Factors:ice Aggravating Factors:sitting Associated Symptoms:no numbness/tingling Scot Hans [place], DC [address], [place], [address], [facility] 01/02/2025 12:19:47 01/01/2025 text/html HPI - Cervical SpineReported bypatient.Location: left Quality:aching Severity:moderate Duration:2 weeks Timing:gradual Alleviating Factors:ice Aggravating Factors:sitting Associated Symptoms:no numbness/tingling Scot Hans [place], [place] [address], [place], [address], [facility] 01/02/2025 11:42:29 01/24/2025 text/html HPI - Cervical SpineReported bypatient.Location: left Quality:aching Severity:moderate Duration:2 weeks Timing:gradual Alleviating Factors:ice Aggravating Factors:sitting Associated Symptoms:no numbness/tingling Scot Hans [place], [place] [address], [place], [address], [facility] 01/24/2025 19:10:20 OBGyn Episode No OBEpisode recorded.
--- OUTSIDE RECORDS SUMMARY | 2025-01-31 07:27 | XMS_ITS | Clinical Summary ---
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 [employer] Allergies Active Allergy Reactions Criticality Noted Date Comments Penicillins 10/06/2018 hives Medications citalopram (CELEXA) 20 MG tablet TK 1 T PO D 3 07/11/2018 Active rizatriptan (MAXALT) 10 MG tablet 0 09/05/2018 Active Active Problems Problem Noted Date Diagnosed Date Severe obstructive sleep apnea 11/21/2018 Overview (02/25/2023): Setting: CPAP 11 cmH20 Supplied by: [facility] PSG done: 11/14/18 AHI 39 RDI 43 Lowest O2 Sat: 80% [place] Immunizations Immunization Administration Dates Next Due Influenza IIV4 (Quadrivalent) 0.5mL (15427) 06/01 Social History Tobacco Use Types Packs/Day Years Used Date Smoking Tobacco: Never Assessed Sex and Gender Information Value Date Recorded Sex Assigned at Not on file Legal Sex Male 7:17 AM CDT Gender Identity Not on file Sexual Orientation Not on file Last Filed Vital Signs Vital Sign Reading Time Taken Comments Blood Pressure 146/80 12/16/2018 8:22 AM CDT Pulse 87 12/16/2018 8:22 AM CDT Temperature - - Respiratory Rate - - Oxygen Saturation 97% 12/16/2018 8:22 AM CDT Inhaled Oxygen Concentration - - Weight 150.6 kg (332 lb) 12/16/2018 8:22 AM CDT Height 195.6 cm (6' 5) 10/06/2018 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 Body Mass Index 39.37 10/06/2018 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 Plan of Treatment Health Maintenance Due Date Last Done Comments Hep C Screening (Preventive Services) 1989 HIV Screening (Preventive Services) 2005 Adult Preventive Visit 2007 DTaP/Tdap/Td Vaccine (1 - Tdap) 2008 HepB Vaccine (1) 2008 COVID-19 Vaccine (1 - 2023-2 5 season) 2024 Cholesterol 2024 Influenza Vaccine (Season Ended) 2025 06/28/20 14 Zoster/Shingles Vaccine (1 of 2) 2039 HPV Vaccine Aged Out No longer eligi ble based on patient's age to complete this topic HepA Vaccine Aged Out No longer eligi ble based on patient's age to complete this topic Hib Vaccine Aged Out No longer eligi ble based on patient's age to complete this topic IPV (Polio) Vaccine Aged Out No longe r eligible based on patient's age to complete this topic MCV4 Vaccine Aged Out No longer eligi ble based on patient's age to complete this topic Meningococcal B Vaccine Aged Out No l onger eligible based on patient's age to complete this topic Pneumococcal Vaccine Aged Out No long er eligible based on patient's age to complete this topic Insurance BCBS OUT OF STATE Care Teams Pitting Machine Operator Relationship Specialty Start Date End Date Eriberto Piedra MD [address] [place] [address] PCP - General 07/06/14
--- OUTSIDE RECORDS SUMMARY | 2025-01-31 07:27 | XMS_ITS | Continuity of Care Document ---
Author Organization [facility] Address [address] [facility] [address] [place] [address] Assessment Encounter Date Assessment Date Assessment LastModified [...] should not hesitate to contact our office. [email or web address] Not available 01/02/2025 11:41:53 Plan of Treatment Reminders Order Date Submit Date Provider Last Modified By Organization Details Last Modified Time Details Appointments DC Treatment 05 2024 05:15P M Casper Lopez DC Not available Not available Not available Lab None recorded. Referral None recorded. Procedures None recorded. Surgeries None recorded. Imaging None recorded. Medication Orders None recorded. Patient TargetsNo targets recorded. Patient InstructionsNo instructions recorded. Reason for Referral None Reported. Problems Name Problem SNOMED Code Status Onset Date Resolution Date Notes Provider Name and Address Organization Details Recorded Time Somatic dysfunction of pelvic region 676244572 Active 2024 Shayne Crews, [place] [address] [facility], [place], [address], [place] [facility] 5 19:34:36 Neck pain 04674617 Active 2023 [facility] Hans [place], [place] [address] [facility], [place], [address], [place] [facility] 5 12:19:15 Cervical segmental dysfunction 813083521 Active 2023 [facility] Hans [place], [place] [address] [facility], [place], [address], [place] [facility] 4 15:13:31 Thoracic segmental dysfunction 144428011 [facility] [place] [address] [facility], [place], [address], [place] [facility] 5 12:19:16 Lumbar segmental dysfunction 571327470 Active 2023 Casper [place], [place] [address] [facility], [place], [address], [place] [facility] 4 15:13:31 Lesion of lumbar spine 607942610 Active 2023 [place] [address] [facility], [place], [address], [place] [facility] 4 15:13:33 Low back pain 433735970 Active 2023 Arjun Salamanca, [place] [address] [facility], [place], [address], [place] [facility] 4 19:05:45 Somatic dysfunction of sacral spine 740178618 Active 2023 [facility] [place], [place] [address] [facility], [place], [address], [place] [facility] 5 12:19:19 Problem Notes None recorded. Procedures Surgical History Date Name Laterality Status Provider Name and Address Organization Details Recorded Time 5 55246: Spinal manipulation , 3 to 4 regions completed Casper Hansnorm Lopez, KAYLEIGH [address] [facility], [place], [address], [facility] [place] - [facility] 01/24/2025 19:09:40 5 57112: Spinal manipulation , 3 to 4 regions completed Casper Hans Jessica, KAYLEIGH [address] [facility], [place], [address], [place] [facility] 01/02/2025 12:19:09 5 33950: Spinal manipulation , 3 to 4 regions completed Casper Hansnorm Lopez, KAYLEIGH [address] [facility], [place], [address], [facility] 01/02/2025 11:42:16 5 50991: Spinal manipulation , 3 to 4 regions completed Shayne Crews, KAYLEIGH [address] [facility], [place], [address], [facility] 11/25/2024 19:34:19 5 08592: Spinal manipulation , 3 to 4 regions completed Shayne Crews, KAYLEIGH [address] [facility], [place], [address], [facility] 11/09/2024 10:24:28 5 43395: Spinal manipulation , 3 to 4 regions completed Casper Hans KAYLEIGH Lopez [address] [facility], [place], [address], [facility] 10/27/2024 19:27:34 5 43863: Spinal manipulation , 3 to 4 regions completed Casper Hansnorm Lopez, KAYLEIGH [address] [facility], [place], [address], [facility] 10/23/2024 19:49:38 5 44091: Spinal manipulation , 3 to 4 regions completed Arjun Salamanca, KAYLEIGH [address] [facility], [place], [address], [facility] 10/20/2024 18:50:29 5 28772: Spinal manipulation , 3 to 4 regions completed Shayne Crews [place] [address] [facility], [place], [address], [facility] 10/19/2024 17:06:10 4 12556: Spinal manipulation , 3 to 4 regions completed Arjun Salamanca [place] [address] [facility], [place], [address], [facility] 08/21/2024 19:05:25 4 19663: Spinal manipulation , 3 to 4 regions completed Casper Maxwell Jessica [place] [address] [facility], [place], [address], [facility] 08/17/2024 15:14:28 Imaging Results None recorded. [...] SNOMED-CT Code Diagnosis ICD10 Code Diagnosis Note [id number] Casper Grecobert KAYLEIGH Lopez [facility] [address] [facility] [place] [address] 01/01/2025 18:00:02 01/02/2025 19:41:02 Lesion of lumbar spine 231356867 M99.01 Neck pain 60795903 M54.2 Thoracic s egmental dysfunction 258578911 M99.02 Lumbar seg mental dysfunction 303633277 M99.03 Cervical s egmental dysfunction 636727104 M99.01 Health Concerns Section Related Observation LastModified by Organization Detai ls LastModified Time None Recorded Concern Status LastModified by Organization Details LastModified Time None Recorded Payers Encounter Date Sequence Insurance Name Policy Number Policy Nguyen Covered Member ID Nguyen Member ID Guarantor Name 01/01/2025 [employer] AN[employer] MARIE Huddleston Notes Date Note Type Note Provider Name and Address Organization Details Recorded Time 01/01/2025 text/html HPI - Cervical SpineReported bypatient.Location: left Quality:aching Severity:moderate Duration:2 weeks Timing:gradual Alleviating Factors:ice Aggravating Factors:sitting Associated Symptoms:no numbness/tingling Scot Hans Lopez DC [address] [facility], [place], [address], [facility] 01/02/2025 11:42:29 OBGyn Episode No OBEpisode recorded.
--- OUTSIDE RECORDS SUMMARY | 2025-01-31 07:28 | XMS_ITS | Continuity of Care Document ---
Author Organization [facility] Address [address] [facility] [address] [place] [address] Assessment Encounter Date Assessment Date Assessment LastModified by Organization Details LastModified Time 01/24/2025 01/24/2025 ASSESSMENT: Patient is a good [...] to contact our office. [email or web address] Not available 01/24/2025 19:09:40 Plan of Treatment [...] Recorded Time Somatic dysfunction of pelvic region 797117022 Active 2024 Shayne Crews, [place] [address] [facility], [place], [address], [place] [facility] 5 19:34:36 Neck pain 65147080 Active 2023 [facility] [place], [place] [address] [facility], [place], [address], [place] [facility] 5 12:19:15 Cervical segmental dysfunction 650341403 Active 2023 [facility] Hans [place], [place] [address] [facility], [place], [address], [place] [facility] 4 15:13:31 Thoracic segmental dysfunction 978776857 [facility] [place] [address] [facility], [place], [address], [place] [facility] 5 12:19:16 Lumbar segmental dysfunction 826847805 Active 2023 [place]per [place], [place] [address] [facility], [place], [address], [place] [facility] 4 15:13:31 Lesion of lumbar spine 781334331 Active 2023 Casper LopezBISCO[place], [place] [address] [facility], [place], [address], [place] [facility] 4 15:13:33 Low back pain 479606559 Active 2023 Arjun Salam[place], [place] [address] [facility], [place], [address], [place] [facility] 4 19:05:45 Somatic dysfunction of sacral spine 224888191 Active 2023 [facility] [place], [place] [address] [facility], [place], [address], [place] [facility] 5 12:19:19 Problem Notes None recorded. Procedures Surgical History Date Name Laterality Status Provider Name and Address Organization Details Recorded Time 5 90598: Spinal manipulation , 3 to 4 regions completed Casper Hansnorm Lopez, KAYLEIGH [address] [facility], [place], [address], [facility] [place] [facility] 01/24/2025 19:09:40 5 71657: Spinal manipulation , 3 to 4 regions completed Casper Hans Jessica, KAYLEIGH [address] [facility], [place], [address], [place] [facility] 01/02/2025 12:19:09 5 69064: Spinal manipulation , 3 to 4 regions completed Casper Hansnorm Lopez, KAYLEIGH [address] [facility], [place], [address], [facility] 01/02/2025 11:42:16 5 15565: Spinal manipulation , 3 to 4 regions completed Shayne Crews, KAYLEIGH [address] [facility], [place], [address], [facility] 11/25/2024 19:34:19 5 67712: Spinal manipulation , 3 to 4 regions completed Shayne Crews, KAYLEIGH [address] [facility], [place], [address], [facility] 11/09/2024 10:24:28 5 65047: Spinal manipulation , 3 to 4 regions completed Casper Hans KAYLEIGH Lopez [address] [facility], [place], [address], [facility] 10/27/2024 19:27:34 5 50822: Spinal manipulation , 3 to 4 regions completed Casper Hansnorm Lopez, KAYLEIGH [address] [facility], [place], [address], [facility] 10/23/2024 19:49:38 5 87218: Spinal manipulation , 3 to 4 regions completed Arjun Salamanca, KAYLEIGH [address] [facility], [place], [address], [facility] 10/20/2024 18:50:29 5 96351: Spinal manipulation , 3 to 4 regions completed Shayne Crews DC [address] [facility], [place], [address], [facility] 10/19/2024 17:06:10 4 03604: Spinal manipulation , 3 to 4 regions completed Arjun Salamanca DC [address] [facility], [place], [address], [facility] 08/21/2024 19:05:25 4 34196: Spinal manipulation , 3 to 4 regions completed Casper Lopez DC [address] [facility], [place], [address], [facility] 08/17/2024 15:14:28 Imaging Results None recorded. Procedure [...] SNOMED-CT Code Diagnosis ICD10 Code Diagnosis Note [id number] Casper Lopez DC [facility] [address] [facility] [place] [address] 01/01/2025 18:00:02 01/02/2025 19:41:02 Lesion of lumbar spine 104057374 M99.01 Neck pain 21430823 M54.2 Thoracic s egmental dysfunction 160055880 M99.02 Lumbar seg mental dysfunction 137632970 M99.03 Cervical s egmental dysfunction 222017349 M99.01 [id number] Casper Lopez DC [facility] [address] [place] [address] 01/02/2025 11:40:21 01/03/2025 09:32:40 Cervical segmental dysfunction 868131960 M99.01 Neck pain 12355881 M54.2 Thoracic s egmental dysfunction 800613698 M99.02 Somatic dy sfunction of sacral spine 044565274 M99.04 [id number] Casper Lopez DC [facility] [address] [facility] [facility] [place] [address] 01/24/2025 18:15:26 01/25/2025 19:03:58 Lesion of lumbar spine 044664969 M99.01 Neck pain 43190970 M54.2 Thoracic s egmental dysfunction 273418051 M99.02 Lumbar seg mental dysfunction 317460940 M99.03 Cervical s egmental dysfunction 423989127 M99.01 Health Concerns Section Related Observation LastModified by Organization Detai ls LastModified Time None Recorded Concern Status LastModified by Organization Details LastModified Time None Recorded Payers Encounter Date Sequence Insurance Name Policy Number Policy Nguyen Covered Member ID Nguyen Member ID Guarantor Name 01/24/2025 [place] Shaquille Huddleston Notes Date Note Type Note Provider Name and Address Organization Details Recorded Time 01/24/2025 text/html HPI - Cervical SpineReported bypatient.Location: left Quality:aching Severity:moderate Duration:2 weeks Timing:gradual Alleviating Factors:ice Aggravating Factors:sitting Associated Symptoms:no numbness/tingling Casper Lopez DC [address] [facility], [place], [address], [place] [facility] 01/24/2025 19:10:20 OBGyn Episode No OBEpisode recorded.
--- OUTSIDE RECORDS SUMMARY | 2025-01-31 07:28 | XMS_ITS | Clinical Summary ---
Author Organization [facility] Address [address] [place] [address] Care Team Providers Care Aquatic Laborer Name Role Phone Eriberto Piedra MD Primary Care Provider [phone] Allergies Active Allergy Reactions Criticality Noted Date Comments Penicillins *Unknown 10/06/2018 hives Medications omeprazole (PRILOSEC) 40 mg Delayed-Release capsuleIndications: Heartburn Take 1 Capsule (40 mg) by mouth once daily before a meal. 90 Capsule 1 3 Active rizatriptan (MAXALT INSTALLATION COORDINATOR) 10 mg disintegrating tablet Take 10 mg by mouth 2 times daily if needed. 2 Active lamoTRIgine 200 mg tabletIndications:G eneralized anxiety disorder,Mild recurrent major depression Take 1 Tablet (200 mg) by mouth once daily. 90 Tablet 3 4 Active venlafaxine (EFFEXOR XR) 150 mg Extended-Release capsuleIndications: Generalized anxiety disorder,Mild recurrent major depression Take 1 Capsule (150 mg) by mouth once daily with evening meal. 90 Capsule 3 4 Active Active Problems Problem Noted Date Diagnosed Date Generalized anxiety disorder 11/30/2022 Mild recurrent major depression 11/30/2022 Immunizations Immunization Administration Dates Next Due Influenza, IIV3 (Age >=3 years) 09/03/2013 Influenza, IIV4 06/28/2014 Tdap 05/11/2016 Social History Tobacco Use Types Packs/Day Years Used Date Smoking Tobacco: Never Smokeless Tobacco: Current Chew Tobacco Cessation:Ready to Q uit: No; Counseling Given: Yes Alcohol Use Standard Drinks/Week Comments Yes 0 (1 standard drink = 0.6 oz pur e alcohol) Social PHQ-2 Answer Date Recorded PHQ-2 TOTAL SCORE 1 08/07/2024 Sex and Gender Information Value Date Recorded Sex Assigned at Not on file Legal Sex Male 8:42 AM SMASH HAND Gender Identity Not on file Sexual Orientation Not on file Obstetrics History Last Filed Vital Signs Vital Sign Reading Time Taken Comments Blood Pressure 146/85 08/07/2024 8:20 AM SMASH HAND Pulse 72 08/07/2024 8:20 AM SMASH HAND Temperature - - Respiratory Rate - - Oxygen Saturation - - Inhaled Oxygen Concentration - - Weight 178.4 kg (393 lb 3.2 oz) 08/07/2024 7:59 AM SMASH HAND Height 195.6 cm (6' 5) 08/07/2024 7:59 AM SMASH HAND Body Mass Index 46.63 08/07/2024 7:59 AM SMASH HAND Plan of Treatment Health Maintenance Due Date Last Done Comments HIV for age 15-65 2004 Hepatitis C screening for age 18-79 2007 Hepatitis B series for 19+ (1 of 3 - 19+ 3-dose series) 2008 COVID-19 vaccine series ( season) 2024 Lipids for age 35-44 2024 Influenza Vaccine (Season Ended) 2025 06/28/2014, 09/03/2013 BMI (ht and wt on same day) for age 18+ 08/07/2025 08/07/2024, 02/11/2023 Depression screening for age 12+ 08/07/2025 08/07/2024, 05/10/2023, 02/11/2023, Additional history exists Tetanus booster 05/11/2026 05/11/2016 Tdap Completed 05/11/2016 Pneumococcal series for age 6-49 Aged Out No longer eligible based on patient's age to complete this topic Insurance [facility] [id number] Care Teams Aquatic Laborer Relationship Specialty Start Date End Date Eriberto Piedra MD [address] [address] PCP - General Family Practice 02/03/23
[2025-01-31 07:33] VITALS: BP 143/86; PULSE 62; RESP 16; TEMP 35.7; O2SAT 97; BMI 46.3
--- NOTE | 2025-01-31 07:51 | ED.GENADULT ---
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 He has never had a kidney stone before. He has not had abdominal surgery. No trauma to the belly. He is generally healthy other than anxiety depression. He takes medicines for that. He also has an albuterol inhaler. Patient denies any other symptoms no hematuria, no fevers chills rigors. He has had no chest pain breathing problem no neurologic complaints. Related Data Home Medications ?Medication ?Instructions ?Recorded ?Confirmed albuterol sulfate 90 mcg/actuation inhalation 01/31/25 aerosol inhaler lamotrigine 200 mg tablet 200 mg PO DAILY 01/31/25 01/31/25 omeprazole 40 mg capsule,delayed 40 mg PO DAILY 01/31/25 01/31/25 release rizatriptan 10 mg disintegrating mg PO 01/31/25 tablet venlafaxine 150 mg 150 mg PO DAILY 01/31/25 01/31/25 capsule,extended release 24 hr Previous Rx's ?Medication ?Instructions ?Recorded tramadol 100 mg tablet 100 mg PO Q6H PRN pain #10 tabs 01/31/25 Allergies Allergy/AdvReac Type Severity Reaction Status Date / Time Penicillins Allergy Mild Verified 01/31/25 07:38 Review of Systems Status of ROS: Reports: 6 or more systems reviewed and unremarkable except as noted in History and below PFSH PFSH Social History Smoking Status: Never smoker How often do you have a drink containing alcohol: 2-4 times a month How many standard drinks containing alcohol do you have on a typical day: 3 or 4 How often do you have six or more drinks on one occasion: Never AUDIT-C Alcohol total score: 3 Non-prescribed substance use: denies use service: No Exam Narrative: Exam Narrative: Objective: Patient is afebrile his vital signs are largely within normal limits He has got an elevated BMI He is pulses regular abdomen obese benign nontender no masses or peritonitis no right lower quadrant pain to palpation Negative CVA tenderness Extremities are no edema edema neurologic nonfocal. Const: Vital Signs, click to edit/add: Vital Signs - 24 hr 01/31/25 07:33 01/31/25 08:12 01/31/25 08:19 Temperature 96.3 F L Pulse Rate [Right Pulse Oximeter] 62 62 Respiratory Rate 16 Blood Pressure [Ri ght Upper Arm] 143/86 H Pulse Oximetry 97 97 97 Oxygen Delivery Me thod Room Air Room Air Course Vital Signs Vital signs: Initial Vital Signs Temperature 96.3 F L 01/31/25 07:33 Temperature Source Temporal Artery Scan 01/31/25 07:33 Pulse Rate 62 01/31/25 07:33 Respiratory Rate 16 01/31/25 07:33 Blood Pressure 143/86 H 01/31/25 07:33 Blood Pressure Mean 105 01/31/25 07:33 Blood Pressure Position Sitting 01/31/25 07:33 Pulse Oximetry 97 01/31/25 07:33 Oxygen Delivery Method Room Air 01/31/25 07:33 Vital Signs Temperature 96.3 F L 01/31/25 07:33 Pulse Rate 62 01/31/25 07:33 Respiratory Rate 16 01/31/25 07:33 Blood Pressure 143/86 H 01/31/25 07:33 Pulse Oximetry 97 01/31/25 07:33 Oxygen Delivery Method Room Air 01/31/25 07:33 Temperature 96.3 F L 01/31/25 07:33 Pulse Rate 62 01/31/25 08:19 Respiratory Rate 16 01/31/25 07:33 Blood Pressure 143/86 H 01/31/25 07:33 Pulse Oximetry 97 01/31/25 08:19 Oxygen Delivery Method Room Air 01/31/25 08:19 Medications Administered Medications: Discontinued Medications Generic Name Dose Route Start Last Admin Trade Name Freq PRN Reason Stop Dose Admin Sodium Chloride 1,000 mls @ 6,000 mls/hr 01/31/25 08:00 01/31/25 10:00 0.9 % Sodium Chloride 1000 Ml IV 01/31/25 08:09 Infused .Q10M PETTY Infusion Morphine Sulfate 4 mg 01/31/25 07:53 01/31/25 08:06 Morphine 4 Mg/Ml Inj IVP 01/31/25 07:54 4 mg ONCE ONE Administration Medical Decision Making MDM Narrative Medical decision making narrative: 34-year-old white male with right flank pain radiating around to his anterior groin. Rule out kidney stone rule out appendicitis. Patient will get a CT scan without contrast, urinalysis, lab studies. IV morphine and Zofran. IV fluid. Disposition pending findings above differential include appendicitis kidney stone intra-abdominal pathology, diverticulitis. Addendum 9:35 a.m.. The patient's pain is better and he really does not describe any now. Fortunately his CT scan by my review of his abdomen looks unremarkable this is reviewed independently but with Radiology over read there is no obvious finding other incidental nonobstructing 3 mm right kidney stone. Patient's lab studies look reassuring. His pain is improved. I am going to send him home with a few tramadol as needed for discomfort. Off work for the next 3 days. Light activity fluids rest return if problems or concerns. He was comfortable plan will follow up as directed. Discussed the evolutionary nature of abdominal pain the need for re-evaluation. Patient does have some hematuria 10-25 red cells per high-powered field, he certainly could have passed a kidney stone that would be consistent with his history. There is nothing visible now. Would recommend observation fluids and a couple days off as mention. Pain control as needed. Recheck changes or concerns. Follow up with primary care as described. Lab Data Labs: Lab Results 01/31/25 01/31/25 Range/Units 07:45 07:54 WBC 7.98 (4.50-11.00) K/uL RBC 5.74 (4.30-5.90) m/uL Hgb 16.3 (13.5-17.5) gm/dL Hct 46.6 (37.0-53.0) % MCV 81 (80-100) fL MCH 28 (26-34) pg MCHC 35 (32-36) gm/dL RDW Coeff of Leigh 13.1 (11.5-15.5) % Plt Count 244 (140-440) K/uL Neut % (Auto) 68.0 (42.0-72.0) % Lymph % (Auto) 22.4 (20-44) % [place] % (Auto) 7.3 (0.0-11.0) % Eos % (Auto) 1.5 (0.0-7.0) % Baso % (Auto) 0.4 (0.0-3.0) % Neut # (Auto) 5.43 (1.7-7.0) K/uL Lymph # (Auto) 1.79 (0.90-2.90) K/uL [place] # (Auto) 0.60 (0.00-0.90) K/UL Eos # (Auto) 0.12 (0.00-0.50) K/uL Baso # (Auto) 0.03 (0.00-0.30) K/uL Abs Immat Gran (auto) 0.03 (0.00-0.30) K/uL Imm/Tot Granulo (auto) 0.4 % Sodium 138 (135-149) mmol/L Potassium 3.9 (3.6-5.1) mmol/L Chloride 107 (96-114) mmol/L Carbon Dioxide 24 (20-32) mmol/L Anion Gap 7 (7-15) mEq/L BUN 15 (5-24) mg/dL Creatinine 1.0 (0.5-1.5) mg/dL Estimated Creat Clear 126.58 Estimated GFR 101 ml/min Glucose 118 H (60-115) mg/dL Calcium 9.2 (8.4-10.6) mg/dL Total Bilirubin 1.2 (0.1-1.5) mg/dL Direct Bilirubin 0.1 (0.0-0.5) mg/dL AST 41 H (12-35) U/L ALT 77 H (4-50) U/L Alkaline Phosphatase 79 (40-150) U/L C-Reactive Protein < 0.5 L (0.5-1.0) mg/dL Total Protein 6.9 (6.0-8.3) g/dL Albumin 4.5 (3.3-5.0) g/dL Amylase 58 (18-89) U/L Urine Color Yellow (Yellow) Urine Appearance Clear (Clear) Urine pH 7.5 (5.0-8.5) Ur Specific [place] 1.015 (1.000-1.030) Urine Protein Negative (Negative) Urine Glucose (UA) Negative (Negative) Urine Ketones Negative (Negative) Urine Blood 3+ A (Negative) Urine Nitrite Negative (Negative) Urine Bilirubin Negative (Negative) Urine Urobilinogen 0.2 (0.2-1.0) Ur Leukocyte Esterase Negative (Negative) Urine RBC 10-25 A (0-2) Urine WBC 0-2 (0-5) Ur Squamous Epith Cells None (None-Few) Urine Bacteria None (None) Discharge Plan Discharge Clinical Impression: Acute right flank pain Patient Disposition: Home w/ Parent or Adult Condition: Improved Instructions: Flank Pain (ED) Additional Instructions: Light activity, off work for 3 days, recheck with regular doctor that time, pain medicine as needed. Cautioned about sedative effect of the pain medicine. Activity Level: Light activity Discharge Diet: Full Liquid Diet Detail: Advance diet as tolerated Prescriptions: New tramadol 100 mg tablet 100 mg PO Q6H PRN (Reason: pain) Qty: 10 0RF No Action lamotrigine 200 mg tablet 200 mg PO DAILY venlafaxine 150 mg capsule,extended release 24hr 150 mg PO DAILY omeprazole 40 mg capsule,delayed release(DR/EC) 40 mg PO DAILY rizatriptan 10 mg tablet,disintegrating PO albuterol sulfate 90 mcg/actuation HFA aerosol inhaler inhalation Follow Up/Referrals: Cheng Sherwood MD [Primary Care Provider, Family Practice] Stand Alone Forms: [employer] Info Instructions
--- NOTE | 2025-01-31 07:54 | CRLHL7_ITS ---
For Patients: As a result of the 21st Century Cures Act, medical imaging exams and procedure reports are released immediately into your electronic medical record. You may view this report before your referring provider. If you have questions, please contact your health care provider. INDICATION: RIGHT FLANK PAIN, LOWER BACK, UPSET STOMACH. (Sic) COMPARISON: None available. TECHNIQUE: CT of the abdomen and pelvis without intravenous contrast. Please note that all CT scans at this facility use dose modulation, iterative reconstruction, and/or weight-based dosing when appropriate to reduce radiation dose to as low as reasonably achievable. FINDINGS: The study is performed without intravenous contrast. This limits the sensitivity of the exam for the detection bowel pathology, focal lesions of the abdominopelvic viscera and vascular pathology including significant vascular stenosis, occlusion and dissection. ABDOMEN Liver: Normal contour. Diffuse steatosis. No significant focal lesion. No intrahepatic biliary ductal dilatation. Gallbladder: Normal size. No pericholecystic inflammatory changes. Normal common duct caliber. Pancreas: Normal contour and attenuation. No peripancreatic inflammatory changes. No significant focal lesion. Normal main duct caliber. Spleen: Not enlarged. No significant focal lesion. Adrenal Glands: Symmetrical adrenal glands. No significant focal lesion. Kidneys: Normal bilateral renal attenuation. No significant focal lesion. Nonobstructing 3 mm right nephrolith (3; 80). No dilatation of the intrarenal collecting systems. No ureteral stone. Nondilated ureters. Gastrointestinal tract: Normal caliber, attenuation and wall thickness of the gastrointestinal tract. No inflammatory changes. Normal small bowel mesentery. Normal appendix. Vascular: Normal outer wall to outer wall abdominal aortic caliber. Patency and luminal caliber of the abdominopelvic arterial and venous vasculature cannot be assessed on this noncontrast study. Peritoneal Cavity/Retroperitoneum: No ascites. No adenopathy. PELVIS No bladder lesion is identified. No significant incidental findings related to the prostate or seminal vesicles. No significant ascites. No adenopathy. SKELETON AND BODY WALL No acute or significant incidental findings. L5-S1 disc degeneration. Incidental bilateral inguinal canal lipomas/extrusion of extraperitoneal fat. Tiny right femoral head bone island. LOWER THORAX Partially included lower thoracic wall, lungs, pleural spaces and mediastinum are otherwise without significant incidental findings. IMPRESSION: 1. No imaging findings pertinent to the indication for the exam or significant unrelated findings. 2. Incidental findings detailed in the body of the report include a nonobstructing 3 mm right nephrolith and diffuse hepatic steatosis. Please note that all CT scans at this facility use dose modulation, iterative reconstruction, and/or weight-based dosing when appropriate to reduce radiation dose to as low as reasonably achievable. Dictated by Nino Patricia MD @ 01/31/2025 8:37:47 AM (Electronically Signed)
[2025-01-31] MEDS: 0.9 % SODIUM CHLORIDE 1000 ml 1,000 ML 6000 ML IV (08:05)
[2025-01-31] MEDS: MORPHINE 4 MG/ML INJ IVP (08:06)
[2025-01-31 08:08] LABS: Basophils Absolute Auto 0.03 K/uL (0.00-0.30); Basophils Percent Auto 0.4 % (0.0-3.0); Eosinophils Absolute Auto 0.12 K/uL (0.00-0.50); Eosinophils Percent Auto 1.5 % (0.0-7.0); Hematocrit 46.6 % (37.0-53.0); Hemoglobin* 16.3 gm/dL (13.5-17.5); Immature Granulocytes Abs Auto 0.03 K/uL (0.00-0.30); Immature Granulocytes Pct Auto 0.4 %; Lymphocytes Absolute Auto 1.79 K/uL (0.90-2.90); Lymphocytes Percent Auto 22.4 % (20-44); Mean Corpuscular HGB Conc 35 gm/dL (32-36); Mean Corpuscular Hemoglobin 28 pg (26-34); Mean Corpuscular Volume 81 fL (80-100); Monocytes Percent Auto 7.3 % (0.0-11.0); Neutrophils Absolute Auto 5.43 K/uL (1.7-7.0); Platelet Count* 244 K/uL (140-440); RDW Coefficient of Variation % 13.1 % (11.5-15.5); Red Blood Count 5.74 m/uL (4.30-5.90); White Blood Count* 7.98 K/uL (4.50-11.00)
[2025-01-31 08:11] LABS: Slide Review Reflex No
[2025-01-31 08:12] VITALS: O2SAT 97
[2025-01-31 08:17] LABS: Albumin* 4.5 g/dL (3.3-5.0); Chloride* 107 mmol/L (96-114); Sodium* 138 mmol/L (135-149)
[2025-01-31 08:18] LABS: Potassium* 3.9 mmol/L (3.6-5.1)
[2025-01-31 08:19] VITALS: PULSE 62; O2SAT 97
[2025-01-31 08:20] LABS: Amylase* 58 U/L (18-89); Blood Urea Nitrogen* 15 mg/dL (5-24); Est. Creatinine Clearance* 126.58; Estimated Glomerular Filt Rate 101 ml/min
[2025-01-31 08:21] LABS: Alanine Aminotransferase* 77 U/L (4-50); Alkaline Phosphatase* 79 U/L (40-150); Anion Gap 7 mEq/L (7-15); Aspartate Amino Transferase* 41 U/L (12-35); Bilirubin Direct* 0.1 mg/dL (0.0-0.5); Bilirubin Total* 1.2 mg/dL (0.1-1.5); Calcium* 9.2 mg/dL (8.4-10.6); Carbon Dioxide* 24 mmol/L (20-32); Glucose* 118 mg/dL (60-115); Total Protein* 6.9 g/dL (6.0-8.3)
[2025-01-31 08:30] LABS: C Reactive Protein* < 0.5 mg/dL (0.5-1.0)
[2025-01-31 09:33] LABS: Appearance Urine Clear (Clear); Bilirubin Urine Negative (Negative); Blood Urine 3+ (Negative); Color Urine Yellow (Yellow); Glucose Urine Negative (Negative); Ketones Urine Negative (Negative); Leukocyte Esterase Urine Negative (Negative); Nitrite Urine Negative (Negative); Protein Urine Negative (Negative); Specific Gravity Urine 1.015 (1.000-1.030); Urobilinogen Urine 0.2 (0.2-1.0); pH Urine 7.5 (5.0-8.5)
[2025-01-31 09:36] LABS: WBC Urine 0-2 (0-5)
== END 2025-01-31 10:59 | disposition home or self-care (01) ==
PROVIDERS: Emergency Provider Family Medicine; PCP Family Medicine
DX: R10.31 Right lower quadrant pain (principal)
CPT/HCPCS: 36415; 74176; 80048; 80076; 81001; 82150; 85025; 86140; 87086; 94761; 96374; 99284; J2270; J7030